=== PATIENT | female | born 1985 | race Caucasian/White ===

== ENCOUNTER → 2016-06-25 | Outpatient (CLI) | payer OTHER | LOC: RAD 09:12 | PROVIDERS: ATTEND Physician Assistant | DX: R10.11 Right upper quadrant pain (principal) | CPT/HCPCS: 76700; 93976 ==

== ENCOUNTER 2017-01-13 14:06 | Emergency (ER) | payer SELFPAY ==
--- NOTE | 2017-01-13 15:15 | ER Document Report ---
HPI - HPI Patient complains to provider of: uti Onset: Other - 3 days Onset/Duration: Persistent Quality of pain: Burning Pain Level: 3 Context: Patient presents complaining of 3 day history of urinary frequency and dysuria. Patient states that she started to develop flank pain yesterday. Patient also reports vaginal discharge and recent unprotected intercourse with a new partner. Patient denies any fever. Patient denies any nausea or vomiting. Associated Symptoms: Other - Vaginal discharge, dysuria, flank pain. denies: Fever Exacerbated by: Denies Relieved by: Denies Similar symptoms previously: Yes Recently seen / treated by doctor: No - ROS ROS below otherwise negative: Yes Systems Reviewed and Negative: Yes All other systems reviewed and negative - CONSTITUTIONAL Constitutional: DENIES: Fever, Chills - NEURO Neurology: DENIES: Weakness - GASTROINTESTINAL Gastrointestinal: DENIES: Nausea, Patient vomiting - URINARY Urinary: REPORTS: Dysuria, Frequency - REPRODUCTIVE Reproductive: REPORTS: Abnormal bleeding / discharge. DENIES: : - MUSCULOSKELETAL Musculoskeletal: REPORTS: Back Pain - DERM Skin Color: Normal Past Medical History - General Information source: Patient - Social History Smoking Status: Current Every Day Smoker Frequency of alcohol use: None Drug Abuse: None Occupation: [id number] Family History: Reviewed & Not Pertinent Patient has suicidal ideation: No Patient has homicidal ideation: No - Past Medical History Cardiac Medical History: Reports: Hx Hypertension Renal/ Medical History: Denies: Hx Peritoneal Dialysis Musculoskeltal Medical History: Reports Hx Muscle Spasm Psychiatric Medical History: Reports: Hx Depression Past Surgical History: Reports: Hx Section - x2, Hx Orthopedic Surgery - c-spine fusion, Hx Tonsillectomy - Immunizations Hx Diphtheria, Pertussis, Tetanus Vaccination: Yes Hx Pneumococcal Vaccination: 02/10/13 Vertical Provider Document - CONSTITUTIONAL Agree With Documented VS: Yes Exam Limitations: No Limitations General Appearance: WD/WN, No Apparent Distress - INFECTION CONTROL TRAVEL OUTSIDE OF THE [place] IN LAST 30 DAYS: No - HEENT HEENT: Atraumatic, Normocephalic - NECK Neck: Normal Inspection, Supple. negative: Lymphadenopathy-Left, Lymphadenopathy-Right - RESPIRATORY Respiratory: Breath Sounds Normal, No Respiratory Distress, Chest Non-Tender O2 Sat by Pulse Oximetry: 99 - CARDIOVASCULAR Cardiovascular: Regular Rate, Regular Rhythm - GI/ABDOMEN Gastrointestinal: Abdomen Soft, Abdomen Non-Tender - REPRODUCTIVE Female Genitalia: CMT. negative: Adnexal Pain-Right, Adnexal Pain-Left Notes: +foul smelling vaginal discharge - BACK Back: CVA Tenderness-Right - MUSCULOSKELETAL/EXTREMETIES Musculoskeletal/Extremeties: RONIT GLEASON - NEURO Level of Consciousness: Awake, Alert, Appropriate Motor/Sensory: No Motor Deficit - DERM Integumentary: Warm, Dry, No Rash Course - Re-evaluation Re-evalutation: 01/13/17 The patient has been informed that they may have pre-hypertension or hypertension based on a blood pressure reading in the emergency department. I recommend that patient call the primary care provider listed on their discharge instructions or a physician of their choice by this week to arrange follow-up for further evaluation of possible pre-hypertension or hypertension. - Vital Signs Vital signs: Temp Pulse Resp BP Pulse Ox 98.9 F 80 16 155/117 H 99 01/13/17 14:30 01/13/17 14:30 01/13/17 14:30 01/13/17 14:30 01/13/17 14:30 - Laboratory Laboratory results interpreted by me: 01/13/17 16:51 Labs- Entire Visit 01/13/17 01/13/17 01/13/17 14:30 14:30 15:40 Urine Color ORANGE Urine Appearance CLOUDY Urine pH 7.0 Ur Specific [place] 1.024 Urine Protein >=500 H Urine Glucose (UA) NEGATIVE Urine Ketones TRACE H Urine Blood SMALL H Urine Nitrite POSITIVE H Urine Bilirubin SMALL H Urine Urobilinogen 4.0 H Ur Leukocyte Esterase MODERATE H Urine WBC (Auto) >182 Urine RBC (Auto) 39 Urine Bacteria (Auto) TRACE Squamous Epi Cells Auto 6 U Non-Squamous Epis Auto 9 Amorphous Sediment Auto TRACE Urine Mucus (Auto) MOD Urine Ascorbic Acid NEGATIVE Urine HCG, Qual NEGATIVE Epi Cells (Wet Prep) 3+ EPITHELIALS SEEN Bacteria (Wet Prep) 3+ BACTERIA SEEN Trichomonas (Wet Prep) NO TRICHOMONAS SEEN Vaginal WBC 2+ WBCS SEEN Vaginal RBC RARE RBCS SEEN Vaginal Yeast NO YEAST SEEN Discharge - Discharge Clinical Impression: Hx of essential hypertension, PID (acute pelvic inflammatory disease), Vaginal discharge UTI (urinary tract infection) Qualifiers: Urinary tract infection type: site unspecified Hematuria presence: with hematuria Qualified Code(s): N39.0 - Urinary tract infection, site not specified Condition: Stable Disposition: HOME, SELF-CARE Instructions: Doxycycline ([facility]), Pelvic Inflammatory Disease ([facility]), Rocephin ( [facility]), Trimethoprim-Sulfa ([facility]), Urinary Tract Infection ([facility]) Additional Instructions: Return immediately for any new or worsening symptoms Followup with your primary care provider, call tomorrow to make a followup appointment Prescriptions: Doxycycline Hyclate 100 mg PO BID #20 capsule Metronidazole [Flagyl 500 mg Tablet] 500 mg PO BID #14 tablet Sulfamethoxazole/Trimethoprim [Bactrim Ds Tablet] 1 each PO BID #20 tablet Forms: Return to Work Referrals: ESTELA MCGRAW DO [NO LOCAL MD] - Follow up tomorrow
[2017-01-13] MEDS ORDERED: LIDOCAINE 1% INJ-PF (10 MG/ML) 30 ML SDV INJ ONE (15:42)
[2017-01-13] MEDS ORDERED: CEFTRIAXONE INJ 1000 MG VIAL IM ONE (15:42)
[2017-01-13 16:03] LABS: AMORPHOUS SEDIMENT,URINE TRACE /HPF; APPEARANCE,URINE CLOUDY; BILIRUBIN,URINE SMALL (NEGATIVE); GLUCOSE, URINE NEGATIVE (NEGATIVE); KETONES,URINE TRACE mg/dL (NEGATIVE); LEUKOCYTE ESTERASE,URINE MODERATE (NEGATIVE); NITRITE,URINE POSITIVE (NEGATIVE); PROTEIN,URINE >=500 mg/dL (NEGATIVE); URINE SPECIFIC GRAVITY 1.024
[2017-01-13] MEDS ORDERED: DOXYCYCLINE HYCLATE 100 MG TABLET PO ONE (16:51)
[2017-01-13] MEDS ORDERED: SULFAMETHOXAZOLE/TRIMETHOPRIM 800-160 MG TABLET PO ONE (16:51)
[2017-01-13 17:08] VITALS: BP 148/94
[2017-01-13 17:30] LABS: CHLAM PCR NOT DETECTED (NOT DETECT)
== END 2017-01-13 17:08 | disposition home or self-care (01) ==
LOC: ER 14:06
DX: N39.0 Urinary tract infection, site not specified (principal); N73.0 Acute parametritis and pelvic cellulitis; I10 Essential (primary) hypertension; F17.200 Nicotine dependence, unspecified, uncomplicated
CPT/HCPCS: 99283; 96372; 87086; 87210; 81025; 87088; 81001; 87186; 87491; 87591; J3490; J0696

== ENCOUNTER 2017-11-18 19:58 | Emergency (ER) | payer SELFPAY ==
[2017-11-18] MEDS ORDERED: LOSARTAN POTASSIUM 50 MG TABLET PO ONE (20:46)
--- NOTE | 2017-11-18 20:50 | ER Document Report ---
ED Medical Screen (RME) - General Chief Complaint: Dizziness Stated Complaint: POSSIBLE ETOH,DIZZINESS Time Seen by Provider: 11/18/17 20:40 Notes: RAPID MEDICAL EVALUATION DISCLOSURE I have seen this patient as part of a Rapid Medical Evaluation and, if applicable, placed any initially appropriate orders. The patient will be seen and fully evaluated, including a full history and physical exam, by a provider ( in Main ED or Fast Track) when a room becomes available. 32-year-old female here with complaints of feeling lightheaded dizzy short of breath over the past few hours. She almost passed out at work so they made her come here. She feels anxious as well but states she does not feel like these symptoms are due to anxiety. She has not tried anything for the symptoms. She denies any chest pain arm leg swelling/pain nausea vomiting. Of note, states she has not taken her losartan since April because she does not have any. EXAM CTAB RRR Appears anxious TRAVEL OUTSIDE OF THE [place] IN LAST 30 DAYS: No - Related Data Allergies/Adverse Reactions: No Known Allergies Allergy (Verified 12/10/13 11:08) Past Medical History - Past Medical History Cardiac Medical History: Reports: Hx Hypertension Renal/ Medical History: Denies: Hx Peritoneal Dialysis Musculoskeltal Medical History: Reports Hx Muscle Spasm Psychiatric Medical History: Reports: Hx Depression Past Surgical History: Reports: Hx Section - x2, Hx Orthopedic Surgery - c-spine fusion, Hx Tonsillectomy - Immunizations Hx Diphtheria, Pertussis, Tetanus Vaccination: Yes Physical Exam - Vital signs Vitals: Temp Pulse Resp BP Pulse Ox 98.4 F 92 17 145/119 H 100 11/18/17 20:31 11/18/17 20:31 11/18/17 20:31 11/18/17 20:31 11/18/17 20:31 Course - Vital Signs Vital signs: Temp Pulse Resp BP Pulse Ox 98.4 F 92 17 145/119 H 100 11/18/17 20:31 11/18/17 20:31 11/18/17 20:31 11/18/17 20:31 11/18/17 20:31
[2017-11-18 21:41] LABS: ABSOLUTE EOSINOPHILS # (AUTO) 0.1 10^3/uL (0.0-0.6); ABSOLUTE LYMPHOCYTES (AUTO) 3.9 10^3/uL (0.5-4.7); ABSOLUTE MONOCYTES (AUTO) 0.4 10^3/uL (0.1-1.4); ABSOLUTE NEUT (AUTO) 3.9 10^3/uL (1.7-8.2); BASOPHILS % (AUTO) 0.4 % (0-2); EOSINOPHILS % (AUTO) 0.8 % (0-6); HEMATOCRIT 50.6 % (36.0-47.0); HEMOGLOBIN 17.4 g/dL (12.0-15.5); MEAN CORPUSCULAR HEMOGLOBIN 31.9 pg (27.0-33.4); MEAN CORPUSCULAR HGB CONC 34.4 g/dL (32.0-36.0); MEAN CORPUSCULAR VOLUME 93 fl (80-97); MONOCYTES % (AUTO) 5.4 % (3-13); PLATELET COUNT 288 10^3/uL (150-450); RED BLOOD COUNT 5.46 10^6/uL (3.72-5.28); RED CELL DISTRIBUTION WIDTH 13.6 % (11.5-14.0); SEGMENTED NEUTROPHILS % (AUTO) 46.4 % (42-78); TOTAL CELLS COUNTED % (AUTO) 100 %; WHITE BLOOD COUNT 8.4 10^3/uL (4.0-10.5)
[2017-11-18 21:53] LABS: URINE AMPHETAMINES SCREEN NEGATIVE; URINE BARBITURATES SCREEN NEGATIVE; URINE BENZODIAZEPINES SCREEN NEGATIVE; URINE COCAINE SCREEN NEGATIVE; URINE MARIJUANA (THC) SCREEN NEGATIVE; URINE METHADONE SCREEN NEGATIVE; URINE PHENCYCLIDINE SCREEN NEGATIVE
[2017-11-18 22:08] LABS: ALANINE AMINOTRANSFERASE 30 U/L (9-52); ALBUMIN 4.8 g/dL (3.5-5.0); ALCOHOL 273 mg/dL (NONE DETECTED); ALKALINE PHOSPHATASE 63 U/L (38-126); ANION GAP 13 (5-19); ASPARTATE AMINO TRANSFERASE 29 U/L (14-36); BILIRUBIN,DIRECT 0.3 mg/dL (0.0-0.4); BILIRUBIN,TOTAL 0.6 mg/dL (0.2-1.3); BLOOD UREA NITROGEN 10 mg/dL (7-20); CALCIUM 9.3 mg/dL (8.4-10.2); CARBON DIOXIDE 29 mmol/L (22-30); CHLORIDE 103 mmol/L (98-107); GLUCOSE 96 mg/dL (75-110); PHOSPHORUS 3.7 mg/dL (2.5-4.5); POTASSIUM 3.9 mmol/L (3.6-5.0); SODIUM 145.1 mmol/L (137-145); TOTAL PROTEIN 7.7 g/dL (6.3-8.2)
--- NOTE | 2017-11-18 22:47 | ER Document Report ---
ED General - General Chief Complaint: Dizziness Stated Complaint: POSSIBLE ETOH,DIZZINESS Time Seen by Provider: 11/18/17 20:40 Mode of Arrival: Ambulatory Information source: Patient Notes: 32-year-old female who presents to the emergency department with complaints of alcohol withdrawal. Patient states that she drinks a bottle of wine daily. She states that her last alcohol consumption was this morning. Patient states that she feels like she has an elevated blood pressure tonight and wanted to come to the emergency department to get this checked out. Patient states that she supposed to be on losartan but is been out of it since April because she is not able to afford it. She denies any current chest pain, shortness of breath, abdominal pain, nausea, vomiting, diarrhea, constipation. TRAVEL OUTSIDE OF THE [place] IN LAST 30 DAYS: No - HPI Onset: Just prior to arrival Onset/Duration: Gradual Quality of pain: No pain Severity: None Associated symptoms: None Exacerbated by: Denies Relieved by: Denies Similar symptoms previously: Yes Recently seen / treated by doctor: No - Related Data Allergies/Adverse Reactions: No Known Allergies Allergy (Verified 12/10/13 11:08) Past Medical History - Social History Smoking Status: Current Every Day Smoker Frequency of alcohol use: Heavy Drug Abuse: None Family History: Reviewed & Not Pertinent Patient has suicidal ideation: No Patient has homicidal ideation: No - Past Medical History Cardiac Medical History: Reports: Hx Hypertension Renal/ Medical History: Denies: Hx Peritoneal Dialysis Musculoskeltal Medical History: Reports Hx Muscle Spasm Psychiatric Medical History: Reports: Hx Depression Past Surgical History: Reports: Hx Section - x2, Hx Orthopedic Surgery - c-spine fusion, Hx Tonsillectomy - Immunizations Hx Diphtheria, Pertussis, Tetanus Vaccination: Yes Hx Pneumococcal Vaccination: 02/10/13 Review of Systems - Review of Systems Constitutional: No symptoms reported EENT: No symptoms reported Cardiovascular: No symptoms reported Respiratory: No symptoms reported Gastrointestinal: No symptoms reported Genitourinary: No symptoms reported Female Genitourinary: No symptoms reported Musculoskeletal: No symptoms reported Skin: No symptoms reported Neurological/Psychological: No symptoms reported -: Yes All other systems reviewed and negative Physical Exam - Vital signs Vitals: Temp Pulse Resp BP Pulse Ox 98.4 F 92 17 145/119 H 100 11/18/17 20:31 11/18/17 20:31 11/18/17 20:31 11/18/17 20:31 11/18/17 20:31 Interpretation: Normal - Notes Notes: PHYSICAL EXAMINATION: GENERAL: Intoxicated. HEAD: Atraumatic, normocephalic. EYES: Pupils equal round and reactive to light, extraocular movements intact, conjunctiva are normal. ENT: Nares patent, oropharynx clear without exudates. Moist mucous membranes. NECK: Normal range of motion, supple without lymphadenopathy LUNGS: Breath sounds clear to auscultation bilaterally and equal. No wheezes rales or rhonchi. HEART: Regular rate and rhythm without murmurs ABDOMEN: Soft, nontender, nondistended abdomen. No guarding, no rebound. No masses appreciated. Female : deferred Musculoskeletal: Normal range of motion, no pitting or edema. No cyanosis. NEUROLOGICAL: Cranial nerves grossly intact. Normal speech, normal gait. Normal sensory, motor exams PSYCH: Normal mood, normal affect. SKIN: Warm, Dry, normal turgor, no rashes or lesions noted. - General General appearance: Appears well, Alert Course - Re-evaluation Re-evalutation: 11/19/17 00:04 Nurse says there was a loud noise and patient was on the ground. I re-evaluted the patient. She denies fall. Neuologically intact although intoxicated. Patient denies head injury or LOC. No signs of trauma seen on the head. Patient refuses head CT. Says she wants to go home. Patient's friend is in the room. He denies seeing the patient fall. He is agreeable with taking the patient home and watching her. I will discharge the patient into her friend's care. I instructed him to return if she is having neuro deficits. - Vital Signs Vital signs: Temp Pulse Resp BP Pulse Ox 98.4 F 92 17 145/119 H 100 11/18/17 20:31 11/18/17 20:31 11/18/17 20:31 11/18/17 20:31 11/18/17 20:31 - Laboratory Result Diagrams: 11/18/17 21:15 11/18/17 21:15 Laboratory results interpreted by me: 11/18/17 11/18/17 21:15 21:15 RBC 5.46 H Hgb 17.4 H Hct 50.6 H Lymphocytes % 47.0 H Sodium 145.1 H - EKG Interpretation by Me Additional EKG results interpreted by me: 11/18/17 23:31 EKG: Ventricular rate 96, ME interval 148, QRS duration 88, QTc 471, sinus rhythm, right axis deviation, no ischemic changes. EKG compared to previous EKG done on 03/12/14. EKGs are similar. Discharge - Discharge Clinical Impression: Intoxication Condition: Good Disposition: HOME, SELF-CARE Instructions: Acute Alcohol Intoxication ([facility]) Referrals: HOME PIMENTEL MD [ACTIVE STAFF] - Follow up as needed
[2017-11-18] MEDS ORDERED: THIAMINE HCL 100 MG, FOLIC ACID 1 MG in NORMAL SALINE 250 ML IV ONE (22:57)
[2017-11-18] MEDS ORDERED: CLONIDINE HCL 0.1 MG TABLET PO ONE (22:57)
[2017-11-19 00:22] VITALS: BP 122/83
[2017-11-19 00:45] LABS: APPEARANCE,URINE CLEAR; BILIRUBIN,URINE NEGATIVE (NEGATIVE); COLOR,URINE COLORLESS; GLUCOSE, URINE NEGATIVE (NEGATIVE); KETONES,URINE NEGATIVE (NEGATIVE); LEUKOCYTE ESTERASE,URINE NEGATIVE (NEGATIVE); NITRITE,URINE NEGATIVE (NEGATIVE); PROTEIN,URINE 30 mg/dL (NEGATIVE); URINE SPECIFIC GRAVITY 1.003; UROBILINOGEN,URINE NEGATIVE mg/dL (<2.0)
--- NOTE | 2017-11-19 10:03 | EKG REPORT ---
SEVERITY:- BORDERLINE ECG - SINUS RHYTHM PROBABLE LEFT ATRIAL ABNORMALITY BORDERLINE RIGHT AXIS DEVIATION : Confirmed by: Vivian Rodriguez MD 19-Nov-2017 10:02:55
== END 2017-11-19 00:22 | disposition home or self-care (01) ==
LOC: ER 19:58
DX: F10.129 Alcohol abuse with intoxication, unspecified (principal); R42 Dizziness and giddiness; F17.200 Nicotine dependence, unspecified, uncomplicated; I10 Essential (primary) hypertension
CPT/HCPCS: 36415; 80053; 80307; 81001; 83735; 84100; 85025; 93005; 93010; 99284

== ENCOUNTER 2019-01-22 21:25 | Emergency (ER) | payer SELFPAY ==
[2019-01-22 22:07] LABS: APPEARANCE,URINE CLEAR; BILIRUBIN,URINE NEGATIVE (NEGATIVE); COLOR,URINE STRAW; GLUCOSE, URINE NEGATIVE (NEGATIVE); KETONES,URINE NEGATIVE (NEGATIVE); LEUKOCYTE ESTERASE,URINE NEGATIVE (NEGATIVE); NITRITE,URINE NEGATIVE (NEGATIVE); PROTEIN,URINE NEGATIVE (NEGATIVE); URINE SPECIFIC GRAVITY 1.003; UROBILINOGEN,URINE NEGATIVE mg/dL (<2.0)
[2019-01-22 22:20] LABS: ADD MANUAL MICROSCOPIC YES
[2019-01-22 22:21] LABS: URINE AMPHETAMINES SCREEN NEGATIVE; URINE BARBITURATES SCREEN NEGATIVE; URINE BENZODIAZEPINES SCREEN NEGATIVE; URINE COCAINE SCREEN NEGATIVE; URINE MARIJUANA (THC) SCREEN UNCONFIRMED POSITIVE; URINE METHADONE SCREEN NEGATIVE; URINE PHENCYCLIDINE SCREEN NEGATIVE
[2019-01-22 22:22] LABS: RBC,URINE RARE /HPF
[2019-01-22 22:30] LABS: ABSOLUTE BASOPHILS # (AUTO) 0.1 10^3/uL (0.0-0.2); ABSOLUTE EOSINOPHILS # (AUTO) 0.2 10^3/uL (0.0-0.6); ABSOLUTE MONOCYTES (AUTO) 0.6 10^3/uL (0.1-1.4); ABSOLUTE NEUT (AUTO) 3.6 10^3/uL (1.7-8.2); BASOPHILS % (AUTO) 0.8 % (0-2); EOSINOPHILS % (AUTO) 2.5 % (0-6); HEMATOCRIT 44.5 % (36.0-47.0); LYMPHOCYTES % (AUTO) 52.2 % (13-45); MEAN CORPUSCULAR HEMOGLOBIN 31.8 pg (27.0-33.4); MEAN CORPUSCULAR HGB CONC 33.8 g/dL (32.0-36.0); MEAN CORPUSCULAR VOLUME 94 fl (80-97); MONOCYTES % (AUTO) 6.4 % (3-13); PLATELET COUNT 258 10^3/uL (150-450); RED BLOOD COUNT 4.73 10^6/uL (3.72-5.28); RED CELL DISTRIBUTION WIDTH 12.7 % (11.5-14.0); SEGMENTED NEUTROPHILS % (AUTO) 38.1 % (42-78); TOTAL CELLS COUNTED % (AUTO) 100 %; WHITE BLOOD COUNT 9.5 10^3/uL (4.0-10.5)
[2019-01-22 22:42] LABS: ALBUMIN 4.6 g/dL (3.5-5.0); ALCOHOL 244 mg/dL (NONE DETECTED); ALKALINE PHOSPHATASE 44 U/L (38-126); ANION GAP 11 (5-19); ASPARTATE AMINO TRANSFERASE 23 U/L (14-36); BILIRUBIN,DIRECT 0.2 mg/dL (0.0-0.4); BILIRUBIN,TOTAL 0.3 mg/dL (0.2-1.3); BLOOD UREA NITROGEN 12 mg/dL (7-20); CALCIUM 9.1 mg/dL (8.4-10.2); CARBON DIOXIDE 23 mmol/L (22-30); CHLORIDE 108 mmol/L (98-107); GLUCOSE 89 mg/dL (75-110); POTASSIUM 4.5 mmol/L (3.6-5.0)
[2019-01-22 22:43] LABS: ACETAMINOPHEN < 10 ug/mL (10-30); SALICYLATE < 1.0 mg/dL (2.0-20.0)
--- NOTE | 2019-01-22 23:52 | ER Document Report ---
ED General - General Chief Complaint: Suicidal Ideation Stated Complaint: SI, POSSIBLE OVERDOSE Time Seen by Provider: 01/22/19 22:11 TRAVEL OUTSIDE OF THE [place] IN LAST 30 DAYS: No - HPI Notes: Patient presents emergency department for evaluation. She states she took 10 losartan. When I asked her if she intended to hurt herself, she states she did not. She states what she really wants is inpatient rehab for her alcoholism. She states that the reason that she took these medicines was to "get somebody's attention" to help her with her alcoholism. She states that nobody else seems to care otherwise. She states she drinks at least a bottle of wine daily, has done so for about a year. She has a history of depression, not currently treated, she does not have insurance. She denies any homicidal ideation. No visual or auditory hallucination. - Related Data Allergies/Adverse Reactions: No Known Allergies Allergy (Verified 12/10/13 11:08) Past Medical History - General Information source: Patient - Social History Smoking Status: Current Every Day Smoker Chew tobacco use (# tins/day): Yes Frequency of alcohol use: Heavy Drug Abuse: Marijuana Family History: Reviewed & Not Pertinent Patient has suicidal ideation: No Patient has homicidal ideation: No - Past Medical History Cardiac Medical History: Reports: Hx Hypertension Renal/ Medical History: Denies: Hx Peritoneal Dialysis Musculoskeletal Medical History: Reports Hx Muscle Spasm Psychiatric Medical History: Reports: Hx Depression Past Surgical History: Reports: Hx Section - x2, Hx Orthopedic Surgery - c-spine fusion, Hx Tonsillectomy - Immunizations Hx Diphtheria, Pertussis, Tetanus Vaccination: Yes Hx Pneumococcal Vaccination: 02/10/13 Review of Systems - Review of Systems Constitutional: No symptoms reported EENT: No symptoms reported Cardiovascular: No symptoms reported Respiratory: No symptoms reported Gastrointestinal: No symptoms reported Genitourinary: No symptoms reported Musculoskeletal: No symptoms reported Skin: No symptoms reported Neurological/Psychological: See HPI Physical Exam - Vital signs Vitals: Temp Pulse Resp BP 98.7 F 99 14 114/85 01/22/19 21:32 01/22/19 21:32 01/22/19 21:32 01/22/19 21:32 - Notes Notes: Is a 33-year-old female who appears her stated age in no acute distress. She is easily agitated, but cooperative with examiner. Smells of alcohol. Vital signs reviewed, please refer to chart. Head is normocephalic, atraumatic. Pupils equal round, reactive to light. Neck is supple without meningismus. Heart is regular rate and rhythm. Lungs are clear to auscultation bilaterally. Abdomen is soft, nontender, normoactive bowel sounds throughout. Extremities without cyanosis, clubbing. Posterior calves are nontender. Peripheral pulses are equal. Skin is warm and dry. Patient is awake, alert, oriented x3. Cranial nerves II - XII are grossly intact without focal neurological deficits. Strength is plus 5 out of 5 bilateral upper and lower extremities. Sensation is intact. Reflexes symmetrical. Intact [id number], rapid alternating movements, [id number]. Course - Re-evaluation Re-evalutation: 01/22/19 23:49 Patient presents emergency department for evaluation. She states she took at least 10 losartan. The patient has not had one single hypotensive reading here in the emergency department thus far. Her creatinine is very mildly elevated from her baseline, but still within normal limits. She is given IV fluids. Her laboratory investigations are largely unremarkable. The only significant abnormalities are an elevated serum alcohol and a positive drug screen for ken jeffrey. At this point patient is medically cleared. Await psychosocial evaluation in the morning. She is medically cleared. 01/22/19 23:50 - Vital Signs Vital signs: Temp Pulse Resp BP Pulse Ox 98.7 F 99 14 114/85 01/22/19 21:32 01/22/19 21:32 01/22/19 21:32 01/22/19 21:32 - Laboratory Result Diagrams: 01/22/19 22:09 01/22/19 22:09 Laboratory results interpreted by me: 01/22/19 01/22/19 01/22/19 21:51 22:09 22:09 Lymph % (Auto) 52.2 H Absolute Lymphs (auto) 5.0 H Seg Neutrophils % 38.1 L Chloride 108 H Est GFR (MDRD) Non-Af 53 L Urine Blood SMALL H Salicylates < 1.0 L Acetaminophen < 10 L Discharge - Discharge Clinical Impression: intentional overdose on antihypertensive, Alcohol abuse with intoxication, Depression Condition: Stable Disposition: OTHER
--- NOTE | 2019-01-23 08:55 | EKG REPORT ---
SEVERITY:- NORMAL ECG - SINUS RHYTHM : Confirmed by: Vivian Rodriguez MD 23-Jan-2019 08:54:08
[2019-01-23] MEDS ORDERED: ONDANSETRON 4 MG TAB.RAPDIS PO ONE (10:19)
--- NOTE | 2019-01-23 10:24 | ER Document Report ---
Doctor's Note Notes: 01/23/19 10:20 I have evaluated this pt. this am and she is very anxious and wants to call home, "but they took all my stuff last night." I have told her that I will make sure that she gets to call home and let her famikly know where she is. Otherwise, she feels all of her needs are being met and her physical exam is nor mal. She is awaiting disposition per mental health.
[2019-01-23] MEDS ORDERED: ACETAMINOPHEN 325 MG TABLET PO ONE ×2 (18:38→19:35)
[2019-01-23] MEDS ORDERED: ACETAMINOPHEN 325 MG TABLET ONE (19:33)
[2019-01-23 20:00] VITALS: BP 129/94
== END 2019-01-23 20:03 | disposition home or self-care (01) ==
LOC: ER 21:25
DX: T46.5X2A Poisoning by other antihypertensive drugs, intentional self-harm, initial encounter (principal); F10.129 Alcohol abuse with intoxication, unspecified; F32.9 Major depressive disorder, single episode, unspecified; I10 Essential (primary) hypertension; Z98.1 Arthrodesis status; F17.220 Nicotine dependence, chewing tobacco, uncomplicated
CPT/HCPCS: 36415; 80053; 80307; 81001; 84703; 85025; 93005; 93010; 99285

== ENCOUNTER 2019-02-19 16:34 | Emergency (ER) | payer SELFPAY ==
--- NOTE | 2019-02-19 16:42 | ER Document Report ---
ED Medical Screen (RME) - General Stated Complaint: ALCOHOL WITHDRAWAL SYMPTOMS Time Seen by Provider: 02/19/19 16:37 Mode of Arrival: Ambulatory Information source: Patient Notes: 33-year-old female with history of alcohol abuse presents today with request of help for her alcoholism. Patient reports she drank a bottle of wine this morning and threw up afterwards. She reports she has been here before for alcohol abuse. Patient reports that she wants to go to [place] rehab. She reports she is been there and was told that she would have to wait 3 weeks. She denies suicidal or homicidal ideations. I have greeted and performed a rapid initial assessment of this patient. A comprehensive ED assessment and evaluation of the patient, analysis of test results and completion of the medical decision making process will be conducted by additional ED providers. Dictation of this chart was performed using voice recognition software; therefore, there may be some unintended grammatical errors. TRAVEL OUTSIDE OF THE [place] IN LAST 30 DAYS: No - Related Data Allergies/Adverse Reactions: No Known Allergies Allergy (Verified 02/19/19 16:37) Past Medical History - Past Medical History Cardiac Medical History: Reports: Hx Hypertension Renal/ Medical History: Denies: Hx Peritoneal Dialysis Musculoskeltal Medical History: Reports Hx Muscle Spasm Psychiatric Medical History: Reports: Hx Depression Past Surgical History: Reports: Hx Section - x2, Hx Orthopedic Surgery - c-spine fusion, Hx Tonsillectomy - Immunizations Hx Diphtheria, Pertussis, Tetanus Vaccination: Yes
[2019-02-19] MEDS ORDERED: NORMAL SALINE 1000 ML 1,000 ML IV ONE (17:17)
--- NOTE | 2019-02-19 17:22 | ER Document Report ---
ED General - General Chief Complaint: Alcohol Withdrawl Stated Complaint: ALCOHOL WITHDRAWAL SYMPTOMS Time Seen by Provider: 02/19/19 16:37 Mode of Arrival: Ambulatory TRAVEL OUTSIDE OF THE [place] IN LAST 30 DAYS: No - HPI Patient complains to provider of: alcohol abuse Notes: 33-year-old alcoholic female presents looking for detox. Patient drinks a great deal of red wine and has ruined her life she is looking to help. Patient denies any symptoms at this time. - Related Data Allergies/Adverse Reactions: No Known Allergies Allergy (Verified 02/19/19 16:37) Past Medical History - General Information source: Patient - Social History Smoking Status: Current Every Day Smoker Chew tobacco use (# tins/day): No Frequency of alcohol use: Heavy Drug Abuse: None Family History: Reviewed & Not Pertinent Patient has suicidal ideation: No Patient has homicidal ideation: No - Past Medical History Cardiac Medical History: Reports: Hx Hypertension Renal/ Medical History: Denies: Hx Peritoneal Dialysis Musculoskeletal Medical History: Reports Hx Muscle Spasm Psychiatric Medical History: Reports: Hx Depression Past Surgical History: Reports: Hx Section - x2, Hx Orthopedic Surgery - c-spine fusion, Hx Tonsillectomy - Immunizations Hx Diphtheria, Pertussis, Tetanus Vaccination: Yes Hx Pneumococcal Vaccination: 02/10/13 Review of Systems - Review of Systems Notes: REVIEW OF SYSTEMS: CONSTITUTIONAL: -fevers, -chills EENT: -eye pain, -difficulty swallowing, -nasal congestion CARDIOVASCULAR: -chest pain, -syncope. RESPIRATORY: -cough, -SOB GASTROINTESTINAL: -abdominal pain, -nausea, -vomiting, -diarrhea GENITOURINARY: -dysuria, -hematuria MUSCULOSKELETAL: -back pain, -neck pain SKIN: -rash or skin lesions. HEMATOLOGIC: -easy bruising or bleeding. LYMPHATIC: -swollen, enlarged glands. NEUROLOGICAL: -altered mental status or loss of consciousness, -headache, -neurologic symptoms PSYCHIATRIC: -anxiety, -depression. ALL OTHER SYSTEMS REVIEWED AND NEGATIVE. Physical Exam - Notes Notes: PHYSICAL EXAMINATION: GENERAL: Well-appearing, well-nourished and in no acute distress. HEAD: Atraumatic, normocephalic. EYES: Pupils equal round and reactive to light, extraocular movements intact, sclera anicteric, conjunctiva are normal. ENT: nares patent, oropharynx clear without exudates. Moist mucous membranes. NECK: Normal range of motion, supple without lymphadenopathy LUNGS: Breath sounds clear to auscultation bilaterally and equal. No wheezes rales or rhonchi. HEART: Regular rate and rhythm without murmurs ABDOMEN: Soft, nontender, normoactive bowel sounds. No guarding, no rebound. No masses appreciated. EXTREMITIES: Normal range of motion, no pitting or edema. No cyanosis. NEUROLOGICAL: Cranial nerves grossly intact. Normal speech, normal gait. Normal sensory and motor exams. PSYCH: Normal mood, normal affect. SKIN: Warm, Dry, normal turgor, no rashes or lesions noted. Course - Re-evaluation Re-evalutation: 02/19/19 17:24 Alcoholic female presents looking for detox. 02/19/19 18:23 Sense of lab work-up relatively unremarkable outside of profound elevation in her alcohol level near 300. Patient given fluid resuscitation, benzodiazepine and antiemetics. Patient feeling markedly improved. Patient will be discharged 11 PM when sober by calculation to rehab center. - Laboratory Result Diagrams: 02/19/19 16:50 02/19/19 16:50 Laboratory results interpreted by me: 02/19/19 02/19/19 02/19/19 16:50 16:50 16:50 Hgb 15.9 H Lymph % (Auto) 52.6 H Seg Neutrophils % 40.8 L AST 41 H Urine Protein 100 H Urine Blood MODERATE H Ur Leukocyte Esterase TRACE H Salicylates < 1.0 L Acetaminophen < 10 L Discharge - Discharge Clinical Impression: Alcohol abuse Condition: Stable Disposition: HOME, SELF-CARE Instructions: Alcohol Withdrawl ([facility])
[2019-02-19] MEDS ORDERED: LORAZEPAM INJ 2 MG/1 ML VIAL IV ONE (17:23)
[2019-02-19 17:27] LABS: ABSOLUTE LYMPHOCYTES (AUTO) 4.6 10^3/uL (0.5-4.7); ABSOLUTE MONOCYTES (AUTO) 0.5 10^3/uL (0.1-1.4); ABSOLUTE NEUT (AUTO) 3.6 10^3/uL (1.7-8.2); BASOPHILS % (AUTO) 0.4 % (0-2); EOSINOPHILS % (AUTO) 0.5 % (0-6); HEMATOCRIT 46.9 % (36.0-47.0); HEMOGLOBIN 15.9 g/dL (12.0-15.5); LYMPHOCYTES % (AUTO) 52.6 % (13-45); MEAN CORPUSCULAR HEMOGLOBIN 31.3 pg (27.0-33.4); MEAN CORPUSCULAR HGB CONC 33.9 g/dL (32.0-36.0); MEAN CORPUSCULAR VOLUME 92 fl (80-97); MONOCYTES % (AUTO) 5.7 % (3-13); PLATELET COUNT 291 10^3/uL (150-450); RED BLOOD COUNT 5.08 10^6/uL (3.72-5.28); RED CELL DISTRIBUTION WIDTH 12.9 % (11.5-14.0); SEGMENTED NEUTROPHILS % (AUTO) 40.8 % (42-78); TOTAL CELLS COUNTED % (AUTO) 100 %; WHITE BLOOD COUNT 8.8 10^3/uL (4.0-10.5)
[2019-02-19 17:34] LABS: APPEARANCE,URINE SLIGHTLY-CLOUDY; BILIRUBIN,URINE NEGATIVE (NEGATIVE); COLOR,URINE YELLOW; GLUCOSE, URINE NEGATIVE (NEGATIVE); KETONES,URINE NEGATIVE (NEGATIVE); LEUKOCYTE ESTERASE,URINE TRACE (NEGATIVE); NITRITE,URINE NEGATIVE (NEGATIVE); PROTEIN,URINE 100 mg/dL (NEGATIVE); URINE SPECIFIC GRAVITY 1.017; UROBILINOGEN,URINE NEGATIVE mg/dL (<2.0)
[2019-02-19 17:44] LABS: ALBUMIN 4.6 g/dL (3.5-5.0); ALCOHOL 299 mg/dL (NONE DETECTED); ALKALINE PHOSPHATASE 59 U/L (38-126); ANION GAP 12 (5-19); ASPARTATE AMINO TRANSFERASE 41 U/L (14-36); BILIRUBIN,DIRECT 0.1 mg/dL (0.0-0.4); BILIRUBIN,TOTAL 0.3 mg/dL (0.2-1.3); BLOOD UREA NITROGEN 13 mg/dL (7-20); CALCIUM 8.9 mg/dL (8.4-10.2); CARBON DIOXIDE 25 mmol/L (22-30); CHLORIDE 105 mmol/L (98-107); GLUCOSE 110 mg/dL (75-110); POTASSIUM 4.2 mmol/L (3.6-5.0); TOTAL PROTEIN 7.2 g/dL (6.3-8.2)
[2019-02-19 17:45] LABS: ACETAMINOPHEN < 10 ug/mL (10-30); SALICYLATE < 1.0 mg/dL (2.0-20.0); URINE AMPHETAMINES SCREEN NEGATIVE; URINE BARBITURATES SCREEN NEGATIVE; URINE BENZODIAZEPINES SCREEN NEGATIVE; URINE COCAINE SCREEN NEGATIVE; URINE MARIJUANA (THC) SCREEN NEGATIVE; URINE METHADONE SCREEN NEGATIVE; URINE PHENCYCLIDINE SCREEN NEGATIVE
[2019-02-20] MEDS ORDERED: NICOTINE 14 MG/24 HR PATCH.TD24 TD ONE (02:17)
[2019-02-20] MEDS ORDERED: LORAZEPAM INJ 2 MG/1 ML VIAL IM ONE (02:17)
[2019-02-20 07:43] VITALS: BP 116/89
== END 2019-02-20 07:46 | disposition home or self-care (01) ==
LOC: ER 16:34
DX: F10.10 Alcohol abuse, uncomplicated (principal); F17.200 Nicotine dependence, unspecified, uncomplicated; I10 Essential (primary) hypertension
CPT/HCPCS: 36415; 80307 ×4; 84703; 85025; 80053; 81001; J2060; J7030